=== PATIENT | female | born 1970 | race Caucasian/White ===

== ENCOUNTER → 2021-11-09 | Outpatient (CLI) | payer OTHER | LOC: M RAD 11:29 | PROVIDERS: ATTEND Physician Assistant | DX: R22.42 Localized swelling, mass and lump, left lower limb (principal) ==

== ENCOUNTER → 2021-11-10 | Outpatient (CLI) | payer OTHER | LOC: M RAD 11:05 | PROVIDERS: ATTEND Physician Assistant | DX: I82.432 Acute embolism and thrombosis of left popliteal vein (principal) ==

== ENCOUNTER → 2021-11-18 | Outpatient (CLI) | payer OTHER | LOC: M WUC 08:14 | PROVIDERS: ATTEND Nurse Practitioner Adult Health | DX: M19.041 Primary osteoarthritis, right hand (principal) ==

== ENCOUNTER → 2021-11-30 | Outpatient (CLI) | payer OTHER | LOC: M WHC 07:51 | PROVIDERS: ATTEND Nurse Practitioner Adult Health | DX: I82.432 Acute embolism and thrombosis of left popliteal vein (principal) ==

== ENCOUNTER → 2022-03-06 | Outpatient (REF) | payer OTHER | LOC: M LAB REF 12:09 | PROVIDERS: ATTEND Nurse Practitioner Adult Health | DX: I82.432 Acute embolism and thrombosis of left popliteal vein (principal) ==

== ENCOUNTER → 2022-09-15 | Outpatient (CLI) | payer OTHER ==
[~2022-09-15] MED LIST: CHOL400T PO; ENAL5TA PO; MULTTAB86 PO; VITA250C3 PO; XARE20TA PO; ZINC PO
== END ==
LOC: M EKG 07:34
PROVIDERS: ATTEND Anesthesiology
DX: Z01.810 Encounter for preprocedural cardiovascular examination (principal)

== ENCOUNTER → 2022-09-24 | Outpatient (CLI) | payer OTHER | LOC: M LABSMTC 10:20 | PROVIDERS: ATTEND Anesthesiology | DX: Z01.812 Encounter for preprocedural laboratory examination (principal); Z11.52 Encounter for screening for COVID-19 ==

== ENCOUNTER 2022-09-27 13:02 | Day surgery (SDC) | payer OTHER ==
[~2022-09-27] VITALS: Ht 157.5 cm; Wt 70.3 kg
[2022-09-27] MEDS ORDERED: LR 1,000 ML IV SCH ×2 (13:20→15:55)
[2022-09-27 13:41] LABS: HEMATOCRIT 37.5 % (36.0-47.0); HEMOGLOBIN 11.9 g/dl (12.0-15.5); MEAN CORPUSCULAR HEMOGLOBIN 27.4 pg (27.0-33.0); MEAN CORPUSCULAR HGB CONC 31.7 g/dl (32.0-36.5); MEAN CORPUSCULAR VOLUME 86.4 fl (80.0-96.0); PLATELET COUNT, AUTOMATED 260 10^3/uL (150-450); RED BLOOD COUNT 4.34 10^6/uL (4.00-5.40); WHITE BLOOD COUNT 6.8 10^3/uL (4.0-10.0)
[2022-09-27] MEDS ORDERED: propofoL 200 MG/20 ML VIAL As Ordered ONE (14:27)
[2022-09-27] MEDS ORDERED: LIDOCAINE 2% 100MG/5ML SDV (FOR ANES.) As Ordered ONE (14:27)
[2022-09-27] MEDS ORDERED: KETOROLAC 60MG 2ML VIAL As Ordered ONE (14:27)
[2022-09-27] MEDS ORDERED: ONDANSETRON 4MG 2ML VIAL As Ordered ONE (14:27)
[2022-09-27] MEDS ORDERED: fentaNYL 100 MCG/2 ML INJECTION As Ordered ONE (14:35)
[2022-09-27] MEDS ORDERED: MIDAZOLAM INJ 2MG/2ML VIAL As Ordered ONE (14:35)
[2022-09-27] MEDS ORDERED: ACETAMINOPHEN 1000MG 100ML IV BAG As Ordered ONE (15:23)
[2022-09-27] MEDS ORDERED: HYDROMORPHONE HCL 0.5 MG/ 0.5 ML SYRINGE IV PRN (15:55)
[2022-09-27] MEDS ORDERED: ONDANSETRON 4MG 2ML VIAL IV PRN (15:55)
[2022-09-27] MEDS ORDERED: oxyCODONE 5MG TAB PO PRN (15:55)
[2022-09-27] MEDS ORDERED: fentaNYL 100 MCG/2 ML INJECTION IV PRN (15:55)
[2022-09-27 16:40] VITALS: BP 131/74
[2022-09-27] MEDS ORDERED: PERCOCET 5MG/325MG TAB PO PRN (17:25)
[2022-09-27] MEDS ORDERED: IBUPROFEN 800 MG TAB PO SCH (20:00)
== END 2022-09-27 17:10 | disposition home or self-care (01) ==
LOC: M SDC 13:02
PROVIDERS: ATTEND Obstetrics & Gynecology
DX: N93.9 Abnormal uterine and vaginal bleeding, unspecified (principal); D25.9 Leiomyoma of uterus, unspecified; I10 Essential (primary) hypertension; M19.90 Unspecified osteoarthritis, unspecified site; J45.909 Unspecified asthma, uncomplicated; Z86.718 Personal history of other venous thrombosis and embolism; Z88.5 Allergy status to narcotic agent; Z79.899 Other long term (current) drug therapy; Z79.01 Long term (current) use of anticoagulants
CPT/HCPCS: 36415; 58563; 81025; 85027; 86850; 86900; 86901; 88305; J1100; J2405

== ENCOUNTER → 2022-12-27 | Outpatient (CLI) | payer OTHER ==
[~2022-12-27] MED LIST changes: +ENAL1TAB48 PO; -ENAL5TA PO
== END ==
LOC: M WHC 08:16
PROVIDERS: ATTEND Nurse Practitioner Adult Health
DX: Z12.31 Encounter for screening mammogram for malignant neoplasm of breast (principal)

== ENCOUNTER 2023-08-30 11:04 | Emergency (ER) | payer OTHER ==
[~2023-08-30] VITALS: Ht 154.9 cm; Wt 73.7 kg
[2023-08-30 14:09] VITALS: BP 130/82; TEMP 98; O2SAT 98
== END 2023-08-30 14:10 | disposition home or self-care (01) ==
LOC: M ED 11:04
DX: I82.432 Acute embolism and thrombosis of left popliteal vein (principal); Z86.718 Personal history of other venous thrombosis and embolism; Z79.01 Long term (current) use of anticoagulants; Z79.899 Other long term (current) drug therapy; Z88.5 Allergy status to narcotic agent

== ENCOUNTER → 2023-12-31 | Outpatient (CLI) | payer OTHER | LOC: M WHC 10:27 | PROVIDERS: ATTEND Nurse Practitioner Adult Health | DX: Z12.31 Encounter for screening mammogram for malignant neoplasm of breast (principal) ==

== ENCOUNTER → 2025-01-09 | Outpatient (CLI) | payer OTHER ==
[~2025-01-09] MED LIST changes: +ASCO250T16 PO; -VITA250C3 PO
== END ==
LOC: M WHC 14:06
PROVIDERS: ATTEND Nurse Practitioner Adult Health
DX: Z12.31 Encounter for screening mammogram for malignant neoplasm of breast (principal); R92.333 Mammographic heterogeneous density, bilateral breasts

== ENCOUNTER → 2025-04-14 | Outpatient (CLI) | payer OTHER | LOC: M WUC 11:28 | PROVIDERS: ATTEND Nurse Practitioner Adult Health | DX: M25.561 Pain in right knee (principal) ==